=== PATIENT | male | born 1980 | race Caucasian/White ===

== ENCOUNTER 2017-09-11 19:24 | Emergency (ER) | payer OTHER ==
[2017-09-11 19:35] VITALS: RESP 16
[2017-09-11] MEDS ORDERED: FLUORESCEIN SODIUM 1 MG STRIP OP ONE (21:05)
[2017-09-11] MEDS ORDERED: PROPARACAINE 0.5% 15 ML OPHT DROP ONE (21:06)
--- NOTE | 2017-09-11 21:17 | EDPHY ---
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 This happened around 11:00 a.m.. He washed his eye out and continued to work. He now has continued pain. No blurry vision. He does not wear glasses or contacts. He denies other injuries. REVIEW OF SYSTEMS: Constitutional: denies: chills, fever, recent illness, recent injury EENTM: See HPI denies: blurred vision, double vision, nose congestion Respiratory: denies: cough, shortness of breath Cardiac: denies: chest pain, irregular heart rate, lightheadedness, palpitations Gastrointestinal/Abdominal: denies: abdominal pain, diarrhea, nausea, vomiting, blood streaked stools Genitourinary: denies: dysuria, frequency, hematuria, pain Musculoskeletal: denies: joint pain, muscle pain Skin: denies: lesions, rash, jaundice, bruising Neurological: denies: headache, numbness, paresthesia, tingling, dizziness, weakness Hematologic/Lymphatic: denies: blood clots, easy bleeding, easy bruising Immunologic/allergic: denies: HIV/AIDS, transplant EXAM: GENERAL: Well-appearing, well-nourished and in no acute distress. HEAD: Atraumatic, normocephalic. EYES: Pupils equal round and reactive to light, extraocular movements intact, sclera anicteric, conjunctival abrasion to right central visual field. Negative Christianne sign on examination with fluorescein, no foreign body seen when examined with split lamp. No cells and flare. ENT: TMs normal, nares patent, oropharynx clear without exudates. Moist mucous membranes. NECK: Normal range of motion, supple without lymphadenopathy or JVD. LUNGS: Breath sounds clear to auscultation bilaterally and equal. No wheezes rales or rhonchi. HEART: Regular rate and rhythm without murmurs, rubs or gallops. ABDOMEN: Soft, nontender, normoactive bowel sounds. No guarding, no rebound. No masses appreciated. BACK: No CVA tenderness, no spinal tenderness, step-offs or deformities EXTREMITIES: Normal range of motion, no pitting or edema. No clubbing or cyanosis. NEUROLOGICAL: Cranial nerves II through XII grossly intact. Normal speech, normal gait. 5/5 strength, normal movement in all extremities, normal sensation PSYCH: Normal mood, normal affect. SKIN: Warm, dry, normal turgor, no visible rashes or lesions. Source: Patient Exam Limitations: No limitations - Personal History Current Tetanus Diphtheria and Acellular Pertussis (TDAP): Yes - Medical/Surgical History Hx Asthma: No Hx Chronic Respiratory Disease: No Hx Diabetes: No Hx Cardiac Disease: No Hx Renal Disease: No Hx Cirrhosis: No Hx Alcoholism: No Hx HIV/AIDS: No Hx Splenectomy or Spleen Trauma: No Other PMH: DENIES - Family History Significant Family History: No pertinent family hx - Social History Smoking Status: Light smoker Alcohol Use: Sober Drug Use: None Constitutional: Initial Vital Signs Temperature (C) 36.4 C 09/11/17 19:31 Heart Rate 94 09/11/17 19:31 Respiratory Rate 16 09/11/17 19:31 Blood Pressure 130/71 H 09/11/17 19:31 O2 Sat (%) 95 09/11/17 19:31 O2 Delivery Mode Room Air Allergies/Adverse Reactions: No Known Allergies Allergy (Unverified 09/11/17 19:30) Home Medications: Medication Instructions Recorded NK [No Known Home Meds] 09/11/17 Medical Decision Making ED Course/Re-evaluation: Patient has a corneal abrasion. It is on his central visual axis. I will start him on Ocuflox and have him follow up with Ophthalmology. No foreign body or perforation. Patient feels much better after proparacaine. He is happy with this plan and declines further workup. We discussed indications for returning. Differential Diagnosis: Partial list of the Differential diagnosis considered include but were not limited to; corneal abrasion, foreign body, perforation and although unlikely based on the history and physical exam, I also considered iritis, glaucoma, conjunctivitis. I discussed these differential diagnoses and the plan with the patient as well as the usual and expected course. The patient understands that the diagnosis is provisional and that in medicine we are not always correct and that further workup is often warranted. Usual and customary warnings were given. All of the patient's questions were answered. The patient was instructed to return to the emergency department should the symptoms at all worsen or return, otherwise to followup with the physician as we discussed. - Data Points Medications Given: Discontinued Medications Ofloxacin (Ocuflox 0.3% Opht Drops Prepack) 1 btl TAKEHOME EDNOW ONE Stop: 09/11/17 21:19 Last Admin: 09/11/17 21:23 Dose: 1 btl Departure - Departure Disposition: Home, Routine, Self-Care Clinical Impression: Corneal abrasion, right Qualifiers: Encounter type: initial encounter Qualified Code(s): S05.01XA - Injury of conjunctiva and corneal abrasion without foreign body, right eye, initial encounter Condition: Good Instructions: Ofloxacin (Into the eye), Corneal Abrasion (ED) Referrals: Max Hudson MD [Medical Doctor] - 1-2 days without fail Print Language: Indonesian
[2017-09-11] MEDS ORDERED: OFLOXACIN 0.3% SOLN PREPACK OPHT.BTL TAKEHOME ONE (21:18)
[2017-09-11 21:36] VITALS: BP 128/68; PULSE 86; TEMP 98.6; O2SAT 97
== END 2017-09-11 21:36 | disposition home or self-care (01) ==
LOC: EDBD 19:24
DX: S05.01XA Injury of conjunctiva and corneal abrasion without foreign body, right eye, initial encounter (principal); F17.200 Nicotine dependence, unspecified, uncomplicated; X58.XXXA Exposure to other specified factors, initial encounter; Y92.69 Other specified industrial and construction area as the place of occurrence of the external cause; Y99.0 Civilian activity done for income or pay; Y93.89 Activity, other specified